=== PATIENT | female | born 1990 | race American Indian/Alaskan Native ===

== ENCOUNTER 2022-03-23 08:32 | Emergency (ER) | payer SELFPAY ==
[2022-03-23] MEDS ORDERED: HYDROcodone/ACETAMINOPHEN 5-325 MG TAB PO NR (08:46)
[2022-03-23] MEDS ORDERED: cephALEXin 500 MG CAP PO NR (08:46)
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
[2022-03-23] MEDS ORDERED: TETANUS,DIPH,PERTUSS(ACELL) VACCINE 0.5 ML SYRINGE IM ONE (10:30)
[2022-03-23 10:41] VITALS: BP 148/89
== END 2022-03-23 10:40 | disposition home or self-care (01) ==
LOC: ED 08:32
DX: T25.229A Burn of second degree of unspecified foot, initial encounter (principal); R03.0 Elevated blood-pressure reading, without diagnosis of hypertension; E11.9 Type 2 diabetes mellitus without complications; J45.909 Unspecified asthma, uncomplicated; Z79.899 Other long term (current) drug therapy; Z98.890 Other specified postprocedural states; X08.8XXA Exposure to other specified smoke, fire and flames, initial encounter; Y93.89 Activity, other specified; Y92.89 Other specified places as the place of occurrence of the external cause; Y99.8 Other external cause status
CPT/HCPCS: 90471; 90715; 99282